=== PATIENT | male | born 1965 | race Hispanic/Latino ===

== ENCOUNTER 2018-10-06 14:49 | Observation (INO) | payer OTHER ==
[~2018-10-06] VITALS: Ht 160 cm; Wt 105.2 kg
[~2018-10-06 14:49] MED LIST: ALPR1TAB2 PO; ALPR2TAB2 PO; BACL20TA PO; CARB1TAB20 PO; CEPH500C2 PO; DOCU-116 PO; DULA1.5P SQ; ESOM40CA PO; HYDR-4064 PO; HYDR25TA PO; INSU100I24 SQ; INSU200I SQ; LISI40TA4 PO; METO25TA6 PO; ONDA4TAB10 PO; PREG75 PO; RISP1TAB26 PO; RIVA20TA PO; SILV20CR11 TP; SIMV40TA59 PO; TAMS-1 PO; TRAM50TA4 PO; TYL3 PO; VENL75TA63 PO; ZOLP10TA6 PO
[2018-10-06] MEDS ORDERED: DIPHENHYDRAMINE HCL 25 MG CAPSULE PO PRN (15:15)
[2018-10-06] MEDS ORDERED: ENOXAPARIN SODIUM 40 MG/0.4 ML SYRINGE SQ SCH (15:15)
[2018-10-06] MEDS ORDERED: ALBUTEROL SULFATE 0.083% 2.5 MG/3 ML INH IH PRN (15:15)
[2018-10-06] MEDS ORDERED: ACETAMINOPHEN 325 MG TAB PO PRN ×2 (15:15)
[2018-10-06] MEDS: METHYLPREDNISOLONE SOD SUCC 125MG/2ML VIAL IVP SCH (15:15)
[2018-10-06] MEDS ORDERED: ONDANSETRON HCL 4 MG/2 ML VIAL IVP PRN (15:15)
[2018-10-06] MEDS ORDERED: GUAIFENESIN-DM 200/20 MG 10 ML PO PRN (15:15)
[2018-10-06] MEDS ORDERED: ZOLPIDEM TARTRATE 5 MG TAB PO PRN (15:15)
[2018-10-06] MEDS ORDERED: CLONIDINE HCL 0.1 MG TABLET PO PRN (15:15)
[2018-10-06] MEDS ORDERED: GLUCAGON 1MG KIT 1 MG ML IM PRN (15:30)
[2018-10-06] MEDS ORDERED: DEXTROSE 50%-WATER 50 ML DISP.SYRIN IV PRN (15:30)
[2018-10-06 15:32] LABS: BASOPHILS % (AUTO) 0.2 % (0.0-5.0); EOSINOPHILS % (AUTO) 0.1 % (0.0-8.0); HEMATOCRIT 47.7 % (42-54); LYMPHOCYTES % (AUTO) 6.2 % (21.0-51.0); MEAN CORPUSCULAR HEMOGLOBIN 33.3 pg (27.0-33.0); MEAN CORPUSCULAR HGB CONC 35.3 g/dL (32.0-36.0); MEAN CORPUSCULAR VOLUME 94.5 fL (79-99); MONOCYTES % (AUTO) 4.5 % (3.0-13.0); NUCLEATED RED BLOOD CELLS 0.1 % (0.0-0.19); PLATELET COUNT (AUTO) 134 K/uL (130-400); RED BLOOD CELL COUNT(AUTO) 5.05 MIL/uL (4.50-6.20); RED CELL DISTRIBUTION WIDTH 13.7 % (11.0-15.5); WHITE BLOOD COUNT (AUTO) 11.1 K/uL (4.8-10.8)
[2018-10-06] MEDS ORDERED: METHYLPREDNISOLONE SOD SUCC 40MG/ML 1ML ONE (15:42)
[2018-10-06] MEDS ORDERED: ENOXAPARIN SODIUM 40 MG/0.4 ML SYRINGE SQ ONE (15:42)
[2018-10-06] MEDS ORDERED: CEFTRIAXONE SODIUM 1 GM ONE (15:42)
[2018-10-06] MEDS ORDERED: ACETAMINOPHEN 325 MG TAB ONE (15:43)
[2018-10-06 15:44] LABS: PARTIAL THROMBOPLASTIN TIME 30.6 SEC (26.3-35.5); PROTHROMBIN TIME 10.5 SEC (9.6-11.6)
[2018-10-06] MEDS ORDERED: OSELTAMIVIR PHOSPHATE 75 MG CAP ONE (15:44)
[2018-10-06] MEDS ORDERED: ONDANSETRON HCL 4 MG/2 ML VIAL ONE (15:57)
[2018-10-06 16:05] LABS: CARBON DIOXIDE 29 mmol/L (21-32); CHLORIDE 98 mmol/L (101-111); CREATININE 1.1 mg/dL (0.5-1.5); GLOMERULAR FILTR. RATE CALC 74 mL/min (>60); GLUCOSE,RANDOM 190 mg/dL (70-105); POTASSIUM 3.8 mmol/L (3.5-5.1); SODIUM SERUM 136 mmol/L (136-145); UREA NITROGEN, BLOOD 12 mg/dL (7-18)
[2018-10-06 16:16] LABS: ALANINE AMINOTRANSFERASE 55 U/L (12-78); ASPARTATE AMINOTRANSFERASE 28 U/L (10-37); BILIRUBIN,TOTAL 0.9 mg/dL (0.2-1.0); CREATINE KINASE, TOTAL 68 U/L (21-232); MYOGLOBIN 72 ng/mL (10-92); TOTAL PROTEIN, SERUM 7.8 g/dL (6.0-8.3); TROPONIN I < 0.04 ng/mL (0.00-0.06)
[2018-10-06 16:49] LABS: APPEARANCE,URINE Clear (CLEAR); BILIRUBIN,URINE Negative (NEGATIVE); COLOR,URINE Yellow (YELLOW); GLUCOSE, URINE (UA) Negative (NEGATIVE); KETONES,URINE Negative (NEGATIVE); LEUKOCYTE ESTERASE ,URINE Trace (NEGATIVE); NITRATE,URINE Negative (NEGATIVE); OCCULT BLOOD,URINE Negative (NEGATIVE); PH,URINE 6.5 (5.0-8.0); PROTEIN,URINE Negative (NEGATIVE)
[2018-10-06 17:35] LABS: BACTERIA,URINE Rare /HPF (None Seen); RBC,URINE None Seen /HPF (0-1); SQUAMOUS EPITHELIAL CELL,UR None Seen /HPF (0-2)
[2018-10-06] MEDS ORDERED: 1/2 NORMAL SALINE 1,000 ML IV ONE (19:18)
[2018-10-06] MEDS: IPRATROPIUM/ALBUTEROL SULFATE 3 ML SOLUTION IH SCH ×2 (19:21→23:39)
[2018-10-06] MEDS: FAMOTIDINE 20MG TAB 20 MG TAB PO SCH (21:00)
[2018-10-06] MEDS: INSULIN R PO SSI SQ SCH (21:00)
[2018-10-06] MEDS ORDERED: HEPARIN SODIUM 5000UNIT/ML 1ML VIAL SQ SCH (21:00)
[2018-10-06] MEDS: OSELTAMIVIR PHOSPHATE 75 MG CAP PO SCH (21:00)
--- NOTE | 2018-10-07 00:42 | NUR ---
Admission note Received pt. per stretcher. Fully awake and responsive. Placed in bed comfortably. VS checked and recorded. Assessment done.Oriented to room , use of call light. Policies and procedures explained. Verbalized understanding. Orders carried out. Plan of care initiated. Monitored and watched for any unusualities or change in condition. Cared for and needs attended. Distress / discomfort not noted.
[2018-10-07 00:43] VITALS: BP 128/78
[2018-10-07] MEDS: 1/2 NORMAL SALINE 1,000 ML IV SCH ×3 (01:15→21:15)
[2018-10-07] MEDS: METHYLPREDNISOLONE SOD SUCC 125MG/2ML VIAL IVP SCH ×2 (02:52→14:46)
[2018-10-07 04:14] VITALS: BP 98/59
[2018-10-07] MEDS: IPRATROPIUM/ALBUTEROL SULFATE 3 ML SOLUTION IH SCH ×3 (05:55→19:38)
[2018-10-07] MEDS: INSULIN R PO SSI SQ SCH ×4 (06:35→21:22)
[2018-10-07 06:46] LABS: BASOPHILS % (AUTO) 0.1 % (0.0-5.0); HEMATOCRIT 49.3 % (42-54); LYMPHOCYTES % (AUTO) 12.9 % (21.0-51.0); MEAN CORPUSCULAR HEMOGLOBIN 33.1 pg (27.0-33.0); MEAN CORPUSCULAR HGB CONC 34.1 g/dL (32.0-36.0); MEAN CORPUSCULAR VOLUME 96.9 fL (79-99); MONOCYTES % (AUTO) 1.2 % (3.0-13.0); NEUTROPHILS % (AUTO) 85.8 % (40.0-77.0); PLATELET COUNT (AUTO) 148 K/uL (130-400); RED BLOOD CELL COUNT(AUTO) 5.08 MIL/uL (4.50-6.20); RED CELL DISTRIBUTION WIDTH 14.1 % (11.0-15.5); WHITE BLOOD COUNT (AUTO) 11.9 K/uL (4.8-10.8)
[2018-10-07 07:01] LABS: ALBUMIN 3.7 g/dL (3.5-5.0); BILIRUBIN,DIRECT 0.3 mg/dL (0.0-0.3); BILIRUBIN,TOTAL 0.8 mg/dL (0.2-1.0); CREATININE 1.4 mg/dL (0.5-1.5); POTASSIUM 3.8 mmol/L (3.5-5.1)
[2018-10-07 07:42] VITALS: BP 128/77
--- NOTE | 2018-10-07 08:00 | NUR ---
ROUNDS VISITED WITH PATIENT. POC DISCUSSED. NEW ORDERS RECEIVED AND CARRIED OUT. PATIENT AWARE. NO COMPLAINTS OF PAIN VOICED AT THIS TIME. VITALS STABLE. AFEBRILE. RESP EVEN AND UNLABORED. NO SOB NOTED. ON ROOM AIR. UP WITH A CANE. FALL PRECAUTIONS IN PLACE. DIET UPGRADED. NO SIGNS OF DISTRESS NOTED AT THIS TIME. CALL LIGHT WITHIN REACH. Addendum: 10/07/18 at 0921 by PUMA GOSS RN RN Amended: Links added.
[2018-10-07] MEDS ORDERED: INSU100I24 SQ (08:50)
[2018-10-07] MEDS ORDERED: PROP20TA7 PO (08:50)
[2018-10-07] MEDS ORDERED: FINA5TAB41 PO (08:50)
[2018-10-07] MEDS ORDERED: RIVA20TA PO (08:50)
[2018-10-07] MEDS ORDERED: FAMO40TA75 PO (08:50)
[2018-10-07] MEDS ORDERED: CYAN100T3 PO (08:50)
[2018-10-07] MEDS ORDERED: TRAMADOL HCL 50 MG TABLET PO PRN (09:30)
[2018-10-07] MEDS ORDERED: ZOLPIDEM TARTRATE 5 MG TAB PO PRN (10:00)
[2018-10-07] MEDS ORDERED: BACLOFEN 10 MG TABLET PO PRN (10:00)
[2018-10-07] MEDS ORDERED: FAMOTIDINE 20MG TAB 20 MG TAB PO SCH (10:00)
[2018-10-07] MEDS: CYANOCOBALAMIN (VITAMIN B-12) 100 MCG TABLET PO SCH (10:00)
[2018-10-07] MEDS: CEFTRIAXONE SODIUM 1 GM IVP SCH (10:16)
[2018-10-07] MEDS: OSELTAMIVIR PHOSPHATE 75 MG CAP PO SCH ×2 (10:16→21:11)
[2018-10-07] MEDS: FAMOTIDINE 20MG TAB 20 MG TAB PO SCH ×2 (10:17→21:11)
[2018-10-07] MEDS: ONDANSETRON ODT 4 MG TAB PO SCH ×2 (10:17→21:15)
[2018-10-07] MEDS: FINASTERIDE 5 MG TABLET PO SCH (10:28)
[2018-10-07] MEDS: TAMSULOSIN HCL 0.4 MG CAP.ER.24H PO SCH (10:28)
[2018-10-07] MEDS: RIVAROXABAN 20 MG TABLET PO SCH (10:29)
[2018-10-07 11:12] VITALS: BP 128/74
[2018-10-07] MEDS: HYDROCODONE/ACETAMINOPHEN 7.5/325 MG TAB PO PRN (14:46)
[2018-10-07] MEDS: PREGABALIN 75 MG CAPSULE PO SCH ×2 (14:46→21:11)
[2018-10-07 16:00] VITALS: BP 121/77
[2018-10-07] MEDS: PROPRANOLOL HCL 20 MG TAB PO SCH (16:15)
[2018-10-07 19:00] VITALS: BP 132/70
[2018-10-07] MEDS ORDERED: SIMVASTATIN 10 MG TABLET PO SCH (21:00)
--- NOTE | 2018-10-07 21:00 | NUR ---
ELEVATED BLOOD SUGAR: 412md/dl Administered HR insulin per sliding scale ( 16 units) Pt. ate approximately 2 hrs ago and was receiving solu-medrol. not notified. No distress/discomfort noted.
[2018-10-08] VITALS: BP 123/75
[2018-10-08] MEDS: IPRATROPIUM/ALBUTEROL SULFATE 3 ML SOLUTION IH SCH ×3 (00:25→11:06)
[2018-10-08] MEDS: HYDROCODONE/ACETAMINOPHEN 7.5/325 MG TAB PO PRN (01:18)
[2018-10-08] MEDS: ONDANSETRON ODT 4 MG TAB PO SCH (01:18)
[2018-10-08] MEDS: METHYLPREDNISOLONE SOD SUCC 125MG/2ML VIAL IVP SCH (02:28)
[2018-10-08 04:00] VITALS: BP_SYST 111; BP_SYST 115; BP_DIAS 56; BP_DIAS 65
[2018-10-08 04:23] LABS: MEAN CORPUSCULAR HEMOGLOBIN 33.5 pg (27.0-33.0); MEAN CORPUSCULAR HGB CONC 35.1 g/dL (32.0-36.0); MEAN CORPUSCULAR VOLUME 95.4 fL (79-99); NUCLEATED RED BLOOD CELLS 0.1 % (0.0-0.19); PLATELET COUNT (AUTO) 143 K/uL (130-400); RED BLOOD CELL COUNT(AUTO) 4.29 MIL/uL (4.50-6.20); WHITE BLOOD COUNT (AUTO) 16.1 K/uL (4.8-10.8)
[2018-10-08 04:39] LABS: CREATININE 1.1 mg/dL (0.5-1.5); POTASSIUM 4.1 mmol/L (3.5-5.1)
[2018-10-08] MEDS: 1/2 NORMAL SALINE 1,000 ML IV SCH (06:27)
[2018-10-08] MEDS: INSULIN R PO SSI SQ SCH (06:34)
[2018-10-08] MEDS ORDERED: VENLAFAXINE HCL 75 MG TAB PO SCH (08:00)
[2018-10-08 08:05] VITALS: BP 124/84
[2018-10-08] MEDS ORDERED: LISINOPRIL 40 MG TABLET PO SCH (09:00)
[2018-10-08] MEDS ORDERED: HYDROCHLOROTHIAZIDE 25 MG TABLET PO SCH (09:00)
[2018-10-08] MEDS: CEFTRIAXONE SODIUM 1 GM IVP SCH (09:40)
[2018-10-08] MEDS: FINASTERIDE 5 MG TABLET PO SCH (09:41)
[2018-10-08] MEDS: FAMOTIDINE 20MG TAB 20 MG TAB PO SCH (09:41)
[2018-10-08] MEDS: CYANOCOBALAMIN (VITAMIN B-12) 100 MCG TABLET PO SCH (09:41)
[2018-10-08] MEDS: PROPRANOLOL HCL 20 MG TAB PO SCH (09:41)
[2018-10-08] MEDS: OSELTAMIVIR PHOSPHATE 75 MG CAP PO SCH (09:41)
[2018-10-08] MEDS: TAMSULOSIN HCL 0.4 MG CAP.ER.24H PO SCH (09:41)
[2018-10-08] MEDS: RIVAROXABAN 20 MG TABLET PO SCH (09:41)
[2018-10-08] MEDS: PREGABALIN 75 MG CAPSULE PO SCH (09:41)
--- NOTE | 2018-10-08 11:00 | NUR ---
Pt D/c home using teach back technique re; New meds, home meds, f/u appointments, s/s to watch for and when to call 911. Follow up with Dr. Resendiz on 10/09/2018 at 08:30 a.m. Please call office with any further questions at [phone]. make sure to buy prescription given to you at discharge for: Tamiflu Keflex Prednisone See: full detail in you discharge instructions. Call Dr. Resendiz if fevers greater than 100.4 or redness worsens to your right leg. Call 911 if shortness of breaht or chest pain does not resolve with rest. make sure to complete full course of antibiotic therapy to prevent super infections. IV out intact, no SOB, No chest pain, Rx given to patient. denies any questions at this time. Tele removed by WORKFORCE MANAGEMENT ANALYST.
--- NOTE | 2018-10-08 12:34 | NUR ---
DC OBS STATUS- CM NOTE ORDER FOR DC THIS AM PER RN. NO TRIGGERS TO CM, NO CONCNERNS VOICED BY PRIMARY RN
== END 2018-10-08 11:34 | disposition home or self-care (01) ==
LOC: EDH 14:49 → EDHIP 14:50 → 4CH 10-07 00:15
PROVIDERS: ADMIT Internal Medicine; ATTEND Internal Medicine
DX: A41.9 Sepsis, unspecified organism (principal); E11.40 Type 2 diabetes mellitus with diabetic neuropathy, unspecified; E78.5 Hyperlipidemia, unspecified; E66.01 Morbid (severe) obesity due to excess calories; L03.115 Cellulitis of right lower limb; I10 Essential (primary) hypertension; I82.401 Acute embolism and thrombosis of unspecified deep veins of right lower extremity; G20 Parkinson's disease
CPT/HCPCS: 36415 ×3; 71045; 80048 ×2; 80053; 80076; 81001; 82550; 82948 ×6; 83605; 83874; 84484; 85025 ×2; 85027; 85610; 85730; 87040 ×2; 87088; 87804 ×2; 93005; 94640 ×7; 94664; 96372 ×3; 96374; 96375; 96376 ×2; 99284; A4218 ×2; G0378 ×45; J0696 ×3; J1650; J1815 ×5; J2405; J2920; J2930 ×3